=== PATIENT | male | born 2000 | race Hispanic/Latino ===

== ENCOUNTER 2023-09-29 15:28 | Emergency (ER) | payer SELFPAY ==
[2023-09-29 15:32] VITALS: BP 141/89
[2023-09-29 15:55] LABS: % Basophils 0.6 % (0-2); % Eosinophils 0.6 % (0-6); % Immature Granulocytes 0.5 % (0-0.5); % Lymphocytes 22.9 % (20.5-51.1); % Monocytes 5.7 % (1.7-9.3); % Neutrophils 69.7 % (42.2-75.2); Absolute Basophils 0.1 10^3/uL (0-0.2); Absolute Eosinophils 0.1 10^3/uL (0-0.7); Absolute Immature Granulocytes 0.1 10^3/uL (0-0.05); Absolute Lymphocytes 2.5 10^3/uL (1.2-3.4); Absolute Monocytes 0.6 10^3/uL (0.1-0.6); Absolute Neutrophils 7.6 10^3/uL (1.4-6.5); Hematocrit 47.6 % (39.0-52.0); Hemoglobin 16.1 g/dL (13.0-18.0); Mean Corp Hgb Conc. 33.8 g/dL (33.0-37.0); Mean Corpuscular Volume 85.8 fL (80.0-94.0); Mean Platelet Volume 10.4 fL (7.4-10.4); Nucleated Red Blood Cells % 0 % (-); Platelet Count 220 10^3/uL (130-400); Red Blood Cell Count 5.55 10^6/uL (4.70-6.10); Red Cell Dist. Width 12.3 % (11.5-14.5); White Blood Cell Count 10.9 10^3/uL (4.8-10.8)
[2023-09-29 16:05] LABS: Amphetamines Negative (Negative); Barbiturates Negative (Negative); Benzodiazepines Negative (Negative); Buprenorphine Negative (Negative); Cocaine Negative (Negative); Marijuana Negative (Negative); Methadone Negative (Negative); Methamphetamines Negative (Negative); Opiates Negative (Negative); Phencyclidine Negative (Negative); Tricyclic Antidepressants Negative (Negative)
[2023-09-29 16:06] LABS: ALT (SGPT) 35 U/L (0-50); AST (SGOT) 38 U/L (17-59); Albumin 5.3 g/dl (3.5-5.0); Alkaline Phosphatase 104 U/L (38-126); Blood Urea Nitrogen 27 mg/dl (9-20); Calcium 10.8 mg/dl (8.4-10.2); Carbon Dioxide 25 mmol/L (22-30); Chloride 97 mmol/L (98-107); Glucose 96 mg/dl (70-99); Potassium 4.1 mmol/L (3.5-5.1); Sodium 137 mmol/L (135-145); Total Bilirubin 0.5 mg/dl (0.2-1.3); Total Protein 8.4 g/dl (6.3-8.2); eGFR > 60.00
--- NOTE | 2023-09-29 16:28 | ED.GENMED ---
History of Present Illness
<Licha Cheema PA-C - Last Filed: 09/29/23 21:18>
General
Chief Complaint: Back Pain
Source: patient
Exam Limitations: none
Time Seen by Provider: 09/29/23 16:03
Nursing documentation reviewed up to this point in time: agreed with
Travel History
Have you had any contact with someone who has COVID-19?: No
Do you have any symptoms of coronavirus? Fever > 100 degrees, chills, cough, shortness of breath, sore throat, loss of taste or smell, muscle aches, or headache?: No
History of Present Illness
History of Present Illness:
Patient is a 23 year old male with history hypertension, kidney stone presenting for evaluation of acute onset right upper quadrant/right lower costal pain. Patient states he first noticed the pain on Wednesday after eating lunch. He describes it as
a constant pain on his right side somewhat worse with movement. He denies any associated fever, chills, chest pain, shortness of breath. He denies any associated nausea, vomiting, urinary symptoms. Patient denies any recent viruses or illnesses.
Patient states this pain is much more intense than previous kidney stones. Patient denies any recent trauma, falls, or strenuous activity. 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
Phy Exam
<Licha Cheema PA-C - Last Filed: 09/29/23 21:18>
Physical Exam
Physical Exam:
General: In mild distress due to pain, nontoxic appearing
Vitals: Mildly hypertensive, otherwise vital signs stable; afebrile
HEENT: Traumatic, normocephalic; pupils equal round and reactive light bilaterally, protecting airway, uvula midline
Neck: appears supple, normal range of motion, trachea midline
CV: Regular rate and rhythm, heart sounds normal, no tenderness anterior chest
Resp: Significant focal tenderness at right lower costal margin without any obvious step-off, deformity, bruising, or rashes; no evidence of respiratory distress, lungs clear to auscultation bilaterally without any wheezing, rales or rhonchi
Abd: Soft, nontender in all 4 quadrants without rebound or guarding, negative Horvath sign; no CVA tenderness
Extremities: No deformities
Neuro: alert and oriented x 3; grossly intact
Psych: Normal affect
Skin: Intact, no rashes or bruising
Scores
<Licha Cheema PA-C - Last Filed: 09/29/23 21:18>
PERC Rule Criteria
Age <50 years: Yes
HR <100 bpm: Yes
Room air oxygen sat >94%: Yes
History of DVT or PE: No
Recent trauma or surgery: No
Hemoptysis: No
Exogenous estrogen: No
Clinical signs suggestive of DVT: No
: No
Considered low risk for PE: Yes
PERC Score: 0
PE can be excluded by PERC: Yes
Course
<Licha Cheema PA-C - Last Filed: 09/29/23 21:18>
Orders/Labs/Results
Orders:
Orders
09/29/23 15:42
CMP [Comprehensive Metabolic Panel] Urgent
Complete Blood Count/With Diff Urgent
Urinalysis Reflex To Culture Urgent
Date Specimen was Collected: 09/29/23
Time Specimen was Collected: 15:37
Comment: ADD ON
Urine Microscopic Reflex Cult Urgent
09/29/23 15:46
Urine Drug Abuse Screen Urgent
Date Specimen was Collected: 09/29/23
Time Specimen was Collected: 15:37
09/29/23 16:20
Add On- LAB Urgent
Tests Added?: UA reflex to culture
09/29/23 16:31
0.9% Sodium Chloride 1000 ml [Nss] 1,000 ml IV BOLUS
Ketorolac [Toradol] 15 mg IV NOW STA
US Abdomen Complete/Upper Urgent
Comment: hx kidney stones
Reason For Exam: Right flank pain
09/29/23 18:09
Morphine Sulfate 2 mg IV NOW STA
09/29/23 18:33
CR Chest - 2 Views Urgent
Comment:
Reason For Exam: Pain at right costal margin
09/29/23 18:35
Electrocardiogram (*1) Urgent
Reason for Study: Chest Pain
EKG- Treatment ONCE
Abnormal Lab Results
09/29/23
15:42
WBC 10.9 H 10^3/uL
(4.8-10.8)
Abs Immat Gran (auto) 0.1 H 10^3/uL
(0-0.05)
Absolute Neuts (auto) 7.6 H 10^3/uL
(1.4-6.5)
Chloride 97 L mmol/L
(98-107)
BUN 27 H mg/dl
(9-20)
Calcium 10.8 H mg/dl
(8.4-10.2)
Total Protein 8.4 H g/dl
(6.3-8.2)
Albumin 5.3 H g/dl
(3.5-5.0)
Urine Albumin (Reflex) 1+ A
(Neg - Trace)
09/29/23 15:42
09/29/23 15:42
Vital Signs
Initial and Last Documented VS:
Initial Vital Signs
Temp Pulse Resp BP Pulse Ox
98.4 F 78 18 141/89 100
09/29/23 15:32 09/29/23 15:32 09/29/23 15:32 09/29/23 15:32 09/29/23 15:32
Last Documented Vital Signs
Temp Pulse Resp BP Pulse Ox
98.4 F 78 18 122/78 98
09/29/23 15:32 09/29/23 18:28 09/29/23 18:28 09/29/23 18:28 09/29/23 18:28
<Yohana Hood MD - Last Filed: 09/29/23 18:14>
Orders/Labs/Results
Orders:
Orders
09/29/23 15:42
CMP [Comprehensive Metabolic Panel] Urgent
Complete Blood Count/With Diff Urgent
Urinalysis Reflex To Culture Urgent
Date Specimen was Collected: 09/29/23
Time Specimen was Collected: 15:37
Comment: ADD ON
Urine Microscopic Reflex Cult Urgent
09/29/23 15:46
Urine Drug Abuse Screen Urgent
Date Specimen was Collected: 09/29/23
Time Specimen was Collected: 15:37
09/29/23 16:20
Add On- LAB Urgent
Tests Added?: UA reflex to culture
09/29/23 16:31
0.9% Sodium Chloride 1000 ml [Nss] 1,000 ml IV BOLUS
Ketorolac [Toradol] 15 mg IV NOW STA
US Abdomen Complete/Upper Urgent
Comment: hx kidney stones
Reason For Exam: Right flank pain
09/29/23 18:09
Morphine Sulfate 2 mg IV NOW STA
09/29/23 18:33
CR Chest - 2 Views Urgent
Comment:
Reason For Exam: Pain at right costal margin
09/29/23 18:35
Electrocardiogram (*1) Urgent
Reason for Study: Chest Pain
EKG- Treatment ONCE
Abnormal Lab Results
09/29/23
15:42
WBC 10.9 H 10^3/uL
(4.8-10.8)
Abs Immat Gran (auto) 0.1 H 10^3/uL
(0-0.05)
Absolute Neuts (auto) 7.6 H 10^3/uL
(1.4-6.5)
Chloride 97 L mmol/L
(98-107)
BUN 27 H mg/dl
(9-20)
Calcium 10.8 H mg/dl
(8.4-10.2)
Total Protein 8.4 H g/dl
(6.3-8.2)
Albumin 5.3 H g/dl
(3.5-5.0)
Urine Albumin (Reflex) 1+ A
(Neg - Trace)
09/29/23 15:42
09/29/23 15:42
Vital Signs
Initial and Last Documented VS:
Initial Vital Signs
Temp Pulse Resp BP Pulse Ox
98.4 F 78 18 141/89 100
09/29/23 15:32 09/29/23 15:32 09/29/23 15:32 09/29/23 15:32 09/29/23 15:32
Last Documented Vital Signs
Temp Pulse Resp BP Pulse Ox
98.4 F 78 18 122/78 98
09/29/23 15:32 09/29/23 18:28 09/29/23 18:28 09/29/23 18:28 09/29/23 18:28
<Licha Cheema PA-C - Last Filed: 09/29/23 21:18>
MDM/Problems Addressed
Differential Diagnosis Includes:
Not limited to: Cholelithiasis, cholecystitis, choledocholithiasis, muscle strain, nephrolithiasis, zoster, pneumonia, pneumothorax, doubt rib fracture
MDM/Problems Addressed:
Patient is a 23-year-old male presenting for evaluation of acute onset right upper quadrant/right costal margin pain present for the past 4 days. No other associated symptoms. Appears worse with movement. Patient with stable vital signs. Exam as
above. He is in no respiratory distress, lungs clear bilaterally. He does have significant focal tenderness of right costal margin. No evidence of bruising, deformity, step-off. Abdomen is soft and nontender. No CVA tenderness or urinary
symptoms. Symptoms are somewhat vague. Will check basic labs, urinalysis. Will start with abdominal ultrasound to rule out possible gallbladder/kidney etiology. Very low suspicion for PE given no risk factors�successfully ruled out with PERC
criteria.
Labs without any clinically significant abnormalities. Mild elevation in BUN, but normal creatinine. Will give IV fluid. Toradol for pain. Urinalysis shows no signs of infection or blood in urine. Given reproducible nature of pain, suspicion
for kidney stone is low but will evaluate further with ultrasound.
Abdominal ultrasound without any evidence of gallstones, hydronephrosis of bilateral kidneys. Patient still marginally uncomfortable without any clear etiology for pain�will check chest x-ray and EKG to ensure no cardiac component. 2 mg morphine
for pain.
Patient reports improvement in pain following morphine. Chest x-ray without any signs of acute process including pneumonia, pneumothorax, noticeable rib fracture.
Work appears been entirely negative. It is possible that it is a muscle strain. Will discharge with information for free clinic, return precautions. Tylenol/NSAIDs for pain. Patient comfortable with plan. All questions answered.
Chronic conditions affecting care:
N/A
Acute Exacerbation and/or Progression of Chronic Illness:
N/A
<Licha Cheema PA-C - Last Filed: 09/29/23 21:18>
*Radiology
Radiology exam reviewed: preliminary read by ED provider and radiology read reviewed
*Pulse Oximetry
Patient hypoxic: no
*EKG
Interpreted by ED Provider?: Yes
EKG Intrepretation Date: 09/29/23
Interpretation: normal
Comparison EKG: no comparison EKG present
Heart Rate: 68
Rate: normal
Rhythm: sinus
Ischemia: no ischemia
*[employer] Interpretation
Rate: [employer]- N/A
*Critical Care Note
Total Time (30-74mins, 75-104mins- exclusive of procedures): Not Applicable
ED Attending Note
<Licha Cheema PA-C - Last Filed: 09/29/23 21:18>
-
Portions of this chart may have been created with voice recognition software.� Occasional wrong word or��sound alike� substitutions may have occurred due to the inherent limitations of voice recognition software.
<Yohana Hood MD - Last Filed: 09/29/23 18:14>
ED Attending Note
Patient seen and examined by attending physician: Yes
I performed the substantive portion of visit, reviewed & personally made and approve the management plan that is documented in note by myself or SHEKHAR.: Yes
ED Attending Note:
23-year-old male with pain in the right upper quadrant/mid axillary line area that started on Wednesday and is getting progressively worse, noted worse with certain movements. 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
some lifting/pushing. He denies rash, dyspnea, nausea, vomiting, anorexia, fever, chills, cough, sore throat, rhinorrhea, numbness, tingling, or other complaints. On exam, patient is obviously uncomfortable as he goes from a supine position to
sitting up. No rash noted, no step-off swelling redness bruising or deformity. He has distinct tenderness to palpation noted in the lower costal/right upper quadrant area, negative Horvaht's, no rebound or guarding. He is comfortable without
respiratory distress, lungs CTA. Workup pending.
Discharge Plan
Departure
Patient Disposition: Home (Routine Discharge)
Date of Disposition: 09/29/23
Time of Disposition: 19:52
Patient with high blood pressure during this ER visit?: No
Condition: Good
Covid-19: Not Applicable
Discharge Problem:
Right flank pain
Instructions: Flank Pain (DC), Abdominal Pain, Adult ED
Referrals:
[facility] - Follow up in 5-7 days
NONE,* [Family Provider] -
Stand Alone Forms: Return to Work
Activity Restrictions/Additional Instructions:
-Return to the emergency department with any high fevers, chest pain, shortness of breath, persistent cough, coughing up blood, intractable pain, intractable nausea/vomiting, worsening in current symptoms, or any other concerns
-It is important stable hydrated. You should take Tylenol and/or Motrin as needed for discomfort
-The information is provided above for frequent. You should establish contact and follow-up in the next week to ensure symptoms are improving.
Interventions
Interventions:
*Risk Screen - Suicide Last Done: 09/29/23 16:49
*General Assessment Last Done: 09/29/23 16:49
*Neglect/Abuse Screening Last Done: 09/29/23 16:49
ED- Fall Risk Assessment Last Done: 09/29/23 16:52
*ED COVID-19 Vaccine History Last Done: 09/29/23 16:49
*Nursing Disposition Last Done: 09/29/23 20:17
ED-Musculoskeletal Assessment Last Done: 09/29/23 16:50
Discharge Date and Time
Discharge Date/Time: 09/29/23 20:18
Print Language: TELUGU
[2023-09-29] MEDS: NSS 1000 IV (16:48)
[2023-09-29] MEDS: TORADOL 15 MG IV (16:48)
[2023-09-29 17:20] LABS: Urine Albumin 1+ (Neg - Trace); Urine Bilirubin Negative (Negative); Urine Character Clear (Clear); Urine Color Yellow; Urine Glucose Negative (Negative); Urine Ketone Negative (Negative); Urine Leukocyte Negative (Negative); Urine Nitrite Negative (Negative); Urine Occult Blood Negative (Negative); Urine Specific Gravity 1.015 (<1.030); Urine Urobilinogen Negative (Neg - 1+)
[2023-09-29 17:36] LABS: Urine Red Blood Cell 0-2 /HPF (0-2); Urine Squamous Cell 0-2 /LPF (Few); Urine White Cell 0-2 /HPF (0-5)
[2023-09-29] MEDS: MORPHINE SULFATE 2 MG IV (18:19)
[2023-09-29 18:28] VITALS: BP 122/78
== END 2023-09-29 20:18 | disposition home or self-care (01) ==
LOC: EMR 15:28
PROVIDERS: EMERGENCY PHYSICIAN Emergency Medicine
DX: R10.11 Right upper quadrant pain (principal); I10 Essential (primary) hypertension
CPT/HCPCS: 99285; 96374; 96375; 96361; 71046; 76700; 80053; 80306; 81003; 81015; 85025; 93005